=== PATIENT | female | born 1955 | race Caucasian/White ===

== ENCOUNTER → 2017-11-04 13:37 | Outpatient (CLI) | payer BC, SELFPAY ==
--- NOTE | 2017-11-04 13:43 | US_ITS ---
US thyroid HISTORY: Follow-up thyroid nodules ITS.REASON: THYROID NODULE ORDERING PHYSICIAN: Pam Barajas MD PATIENT AGE: 62 years COMPARISON: 10/21/2016 FINDINGS: The right lobe is 4.3 x 1.5 x 1.9 cm. Remains a multinodular appearance of the right lobe of the thyroid gland with multiple ill-defined nodules apparent which have a low level of suspicion for malignancy. The largest nodules in the lower pole measuring 8 mm unchanged. Left lobe is 4.2 x 1.3 x 1.2 cm. Multiple ill-defined nodules once again noted on the left which have low level of suspicion for malignancy and do not appear significantly changed. Largest nodules in the upper pole at 7 mm unchanged. IMPRESSION: No change bilateral probably benign thyroid nodules. Consider continued yearly follow-up
== END ==
PROVIDERS: PCP Family Medicine; Visit Provider Otolaryngology
DX: E04.1 Nontoxic single thyroid nodule (principal)
CPT/HCPCS: 76536

== ENCOUNTER → 2019-02-22 15:35 | Outpatient (CLI) | payer BC, SELFPAY ==
--- NOTE | 2019-02-22 15:49 | US_ITS ---
US thyroid HISTORY: Follow-up thyroid nodule ITS.REASON: THYROID NODULE ORDERING PHYSICIAN: Pam Barajas MD PATIENT AGE: 64 years Comparison: 11/04/2017 FINDINGS: The right lobe is 3.9 x 1 x 1.7 cm. 4 mm isoechoic nodule at the junction of the right lobe and isthmus unchanged. There is heterogeneous echogenicity of the thyroid gland with nodular contour. It is difficult to separate these areas from true nodules. There is an oval isoechoic area in the lower ON 8 x 4 mm unchanged 8 x 6 mm isoechoic nodule lower pole unchanged The left lobe is 4 x 1.3 x 1.3 cm. Isoechoic nodule upper pole laterally at 8 mm unchanged Mixed nodule mid polar region a 6 mm unchanged. Next nodule lower pole at 5 mm unchanged IMPRESSION: No change multiple thyroid nodules.
== END ==
PROVIDERS: PCP Family Medicine; Visit Provider Otolaryngology
DX: E04.9 Nontoxic goiter, unspecified (principal)
CPT/HCPCS: 76536

== ENCOUNTER → 2020-08-18 11:58 | Outpatient (CLI) | payer BC, SELFPAY | PROVIDERS: PCP Internal Medicine Adolescent Medicine; Visit Provider Internal Medicine Adolescent Medicine | DX: U07.1 COVID-19; Z20.822 Contact with and (suspected) exposure to COVID-19 | CPT/HCPCS: U0003 ==

== ENCOUNTER → 2020-08-29 13:50 | Outpatient (CLI) | payer BC, SELFPAY ==
--- NOTE | 2020-08-29 14:02 | XR_ITS ---
PROCEDURE: XR CHEST 2V CLINICAL HISTORY: COUGH, COVID 19 Cough and fever COMPARISON: CR CXR1 CHEST-PORTABLE from 11/09/2014 FINDINGS: The cardiomediastinal silhouette and pulmonary vascularity are within normal limits. The lungs are clear without infiltrates, suspicious nodules, or pleural effusions. No acute bony abnormalities. IMPRESSION: No acute findings. Dictated by: Matheus Oleary MD 08/29/2020 14:38 Matheus Oleary MD in [facility] 08/29/2020 14:38
== END ==
PROVIDERS: PCP Family Medicine; Visit Provider Internal Medicine Adolescent Medicine
DX: U07.1 COVID-19 (principal); R05 Cough
CPT/HCPCS: 71046

== ENCOUNTER → 2021-02-22 13:27 | Outpatient (CLI) | payer BC, SELFPAY ==
--- NOTE | 2021-02-22 13:30 | US_ITS ---
PROCEDURE: US THYROID CLINICAL INDICATION: THYROID NODULE,HYPOTHYROIDISM COMPARISON: US THY US thyroid from 02/22/2019 FINDINGS: Right lobe: 4.2 x 1.3 x 1.5 cm. There is a stable 4 mm isoechoic nodule in the medial aspect of the right lobe. A vague nodular areas present in the upper pole at 5 mm unchanged. An additional vague slightly hypoechoic nodular area in the upper pole at 8 mm unchanged. In the lower pole there is an additional isoechoic nodule at 7 mm unchanged. Left lobe: 4.1 x 1.1 x 1.6 cm. 9 mm spongiform nodule upper pole unchanged. 2 mm hypoechoic nodule lower pole unchanged Isthmus: Unremarkable Additional findings: IMPRESSION: No change small bilateral thyroid nodules. Benign findings Dictated by: Matheus Oleary MD 02/22/2021 16:03 Matheus Oleary MD in [facility] 02/22/2021 16:03
== END ==
PROVIDERS: PCP Family Medicine; Visit Provider Otolaryngology
DX: E04.1 Nontoxic single thyroid nodule (principal); E03.9 Hypothyroidism, unspecified
CPT/HCPCS: 76536

== ENCOUNTER → 2021-05-01 11:16 | Outpatient (CLI) | payer BC, SELFPAY ==
[2021-05-01 11:38] LABS: Basophils # 0.1 K/mm3 (0-0.2); Basophils % 0.9 % (0.1-2.0); Eosinophils # 0.1 K/mm3 (0.0-0.4); Eosinophils % 1.6 % (0.1-12.0); Hematocrit 46.9 % (37.0-47.0); Hemoglobin 15.3 g/dL (12.2-16.2); Lymphocytes # 1.7 K/mm3 (0.7-4.5); Lymphocytes % 28.5 % (10-50); Mean Corpuscular HGB Conc 32.6 g/dL (31.8-35.4); Mean Corpuscular Hemoglobin 32.1 pg (27.0-31.2); Mean Corpuscular Volume 98.6 fl (81-99); Mean Platelet Volume 8.4 fl (7.4-10.4); Monocytes # 0.3 K/mm3 (0.1-1.0); Monocytes % 4.6 % (1.7-9.3); Neutrophils # 3.8 K/mm3 (1.8-7.8); Neutrophils % 64.4 % (37.0-80.0); Platelet Count 265 K/mm3 (142-424); Red Blood Count 4.76 M/mm3 (4.20-5.40); Red Cell Distribution Width 13.2 % (11.5-17.5); White Blood Count 5.9 K/mm3 (4.8-10.8)
[2021-05-01 11:55] LABS: Coronavirus 19 IgG Antibody Positive (Negative); Coronavirus 19 IgM Antibody Negative (Negative)
[2021-05-01 12:22] LABS: Chloride 104 mmol/L (98-107); Potassium 4.2 mmoL/L (3.5-5.1); Sodium 141 mmol/L (136-145)
[2021-05-01 12:24] LABS: Blood Urea Nitrogen 11 mg/dl (7-17); Estimated Glomerular Filt Rate 72 ml/min (>60); GFR (African American) 87 ML/MIN (>60)
[2021-05-01 12:25] LABS: Alanine Aminotransferase 22 U/L (12-78); Albumin Level 4.6 g/dl (3.5-5.0); Albumin/Globulin Ratio 1.7 (1.1-1.8); Alkaline Phosphatase 86 U/L (38-126); Anion Gap 14.2 mEq/L (5-15); Aspartate Amino Transferase 30 U/L (14-36); Bilirubin,Total 0.5 mg/dl (0.2-1.3); Calcium 9.4 mg/dl (8.4-10.2); Carbon Dioxide 27 mmol/L (22.0-30.0); Chol/HDL Ratio 4.2 (1-3.5); Cholesterol 258 mg/dl (140-200); Globulin 2.7 g/dL (1.3-3.2); Glucose 117 mg/dl (74-100); HDL Cholesterol 61 mg/dl (40-60); Total Protein,Serum 7.3 g/dl (6.3-8.2); Triglycerides 175 mg/dl (30-150); VLDL Cholesterol 35 mg/dL (0-40)
[2021-05-01 12:37] LABS: Direct LDL Cholesterol 137.12 mg/dL (100-129)
[2021-05-01 12:58] LABS: Thyroid Stimulating Hormone 0.81 uIU/mL (0.465-4.68)
[2021-05-01 16:42] LABS: 25-OH Vitamin D, Total 41.8 ng/mL (30-100)
== END ==
PROVIDERS: Visit Provider Family Medicine
DX: E78.00 Pure hypercholesterolemia, unspecified (principal); E03.9 Hypothyroidism, unspecified; R79.89 Other specified abnormal findings of blood chemistry
CPT/HCPCS: 36415; 80053; 80061; 82306; 84439; 84443; 85025; 86328

== ENCOUNTER → 2023-04-02 14:50 | Outpatient (CLI) | payer MEDICARE, BC, SELFPAY ==
--- NOTE | 2023-04-02 14:57 | US_ITS ---
FINAL REPORT TECHNIQUE: Real-time grayscale and color ultrasound of the thyroid was performed. CLINICAL HISTORY: THYROID NODULE COMPARISON: 02/22/2021 FINDINGS: The thyroid gland measures 49 mm on the right and 45 mm on the left. The isthmus measures 8 mm. The parenchyma is unremarkable. Nodules: Right round isoechoic 9 mm TR 3 nodule mid right lobe. Left dominant lower pole 9 mm isoechoic TR 3 nodule. IMPRESSION: Bilateral TR 3 nodules with no follow-up required per TI-RADS criteria. Reviewed, Interpreted and Dictated by Bill Almanzar MD Transcribed by Bhumika Carroll Authenticated and [facility]
== END ==
PROVIDERS: PCP Family Medicine; Visit Provider Otolaryngology
DX: E04.1 Nontoxic single thyroid nodule (principal)
CPT/HCPCS: 76536